=== PATIENT | female | born 1955 | race African-American/Black ===

== ENCOUNTER → 2017-06-25 | Outpatient (CLI) | payer OTHER ==
[~2017-06-25] MED LIST: Benicar HCT 40/25 PO; CELEBREX200 MG PO; Ecotrin PO; Feosol PO; Maxalt PO; Neurontin PO; Pravachol PO; Senokot S,Pericolace PO; Singulair PO; VITAMIN D1000 INTUN PO; Vicodin,Norco 5/325 PO; celeXA PO
== END | disposition home or self-care (01) ==
DX: R26.2 Difficulty in walking, not elsewhere classified (principal); M25.562 Pain in left knee; M25.662 Stiffness of left knee, not elsewhere classified; M62.81 Muscle weakness (generalized); M17.12 Unilateral primary osteoarthritis, left knee
CPT/HCPCS: 97161 GP; 97165 GO; 97530 GP; 97537 GO

== ENCOUNTER 2017-08-04 22:06 | Inpatient (IN) | payer OTHER ==
[~2017-08-04] VITALS: Ht 162.6 cm; Wt 126.5 kg
[~2017-08-04 22:06] MED LIST changes: +ARAVA10 MG PO; +BENICAR40 MG PO; +CELEXA20 MG PO; +COLACE CLEAR50 MG PO; +HUMIRA40 MG/0.8 SC; +PRAVACHOL40 MG PO; +SINGULAIR10 MG PO; +TYLENOL ARTHRI650 MG PO
[2017-08-05 07:39] VITALS: BP 139/63
[2017-08-05 07:44] VITALS: BP 139/63
[2017-08-05 12:25] LABS: HEMATOCRIT 37.5 % (36.0-46.0); HEMOGLOBIN 12.5 G/DL (11.9-15.5); MCH 30.5 PG (29.0-34.0); MCHC 33.3 G/DL (30.0-36.0); MCV 91.5 FL (83-99); PLATELET COUNT 176 K/uL (156-360); RBC DIS.WIDTH-CV 13.5 % (11.8-14.6); RBC DIS.WIDTH-SD 45.4 % (39-53); WHITE BLOOD COUNT 3.6 K/uL (4.1-10.2)
[2017-08-05 14:53] VITALS: BP 142/60
[2017-08-05 19:45] VITALS: BP 137/63
[2017-08-05 23:16] VITALS: BP 148/63
[2017-08-06 05:13] VITALS: BP 144/65
[2017-08-06 06:27] LABS: HEMATOCRIT 35.7 % (36.0-46.0); HEMOGLOBIN 11.7 G/DL (11.9-15.5)
[2017-08-06 06:35] LABS: CHLORIDE 101 MEQ/L (99-109); CREATININE 0.9 MG/DL (0.6-1.3); GFR ESTIMATE (CALCULATED) > 59 mL/min/; GLUCOSE 151 mg/dL (70-99); POTASSIUM 3.7 MEQ/L (3.7-5.4); SODIUM 137 MEQ/L (136-147); UREA NITROGEN (BUN) 9 mg/dL (9-23)
[2017-08-06 07:49] VITALS: BP 141/63
[2017-08-06 12:06] VITALS: BP 138/66
[2017-08-06 16:20] VITALS: BP 130/61
[2017-08-06 23:05] VITALS: BP 121/56
[2017-08-07 07:56] LABS: HEMATOCRIT 33.8 % (36.0-46.0); HEMOGLOBIN 11.1 G/DL (11.9-15.5); MCV 89.2 FL (83-99)
[2017-08-07 08:08] VITALS: BP 143/63
[2017-08-07] MEDS ORDERED: LOVENOX40 MG/0.4 SC (09:07)
[2017-08-07] MEDS ORDERED: CELECOXIB200 MG PO (09:07)
[2017-08-07] MEDS ORDERED: HYDROCODON-ACE1 EAC7 PO (09:07)
== END 2017-08-07 14:11 | disposition home or self-care (01) | DRG 470 ==
LOC: ENRESERV 22:06 → CANRESERV 22:06 → 2SOUTH 08-05 06:48 → ENRESERV 08-05 13:58 → 3EAST 08-05 14:27 → 2SOUTH 08-05 15:32 → 3EAST 08-07 14:11
PROVIDERS: Orthopaedic Surgery
PROC: 0SRD0J9 Replacement of Left Knee Joint with Synthetic Substitute, Cemented, Open Approach (ICD-10-PCS; principal; 2017-08-05)
DX: M17.12 Unilateral primary osteoarthritis, left knee (principal); K21.9 Gastro-esophageal reflux disease without esophagitis; I10 Essential (primary) hypertension; F32.9 Major depressive disorder, single episode, unspecified; E78.2 Mixed hyperlipidemia; E66.01 Morbid (severe) obesity due to excess calories; M06.9 Rheumatoid arthritis, unspecified; K31.1 Adult hypertrophic pyloric stenosis; J32.9 Chronic sinusitis, unspecified; Z96.651 Presence of right artificial knee joint; Z68.42 Body mass index [BMI] 45.0-49.9, adult; Z82.49 Family history of ischemic heart disease and other diseases of the circulatory system; Z80.0 Family history of malignant neoplasm of digestive organs; Z90.710 Acquired absence of both cervix and uterus; Z83.3 Family history of diabetes mellitus
CPT/HCPCS: 73560; 80048; 85014; 85018; 85027; C1713; J0131; J0690; J1100; J1170; J1650; J2250; J2405; J2795; J3010; J7030; J7050